=== PATIENT | male | born 1970 | race Caucasian/White ===

== ENCOUNTER 2024-10-13 23:51 | Emergency (ER) | payer SELFPAY ==
[~2024-10-13] VITALS: Ht 170.2 cm; Wt 62.9 kg
[2024-10-14 00:17] VITALS: O2SAT 98
[2024-10-14 00:38] VITALS: BP 145/79; PULSE 62; RESP 16; TEMP 36.9; O2SAT 100
[2024-10-14 04:14] LABS: BASOPHILS % 1.2 % (0.0-2.0); EOSINOPHILS % 1.5 % (0.0-5.0); HEMATOCRIT. 41.1 % (42.0-52.0); HEMOGLOBIN. 13.5 g/dL (14.0-18.0); LYMPHOCYTES % 35.9 % (20.0-50.0); MEAN CORPUSCULAR HEMOGLOBIN 28.6 pg (28.0-32.0); MEAN CORPUSCULAR HGB CONC 32.9 g/dL (31.0-37.0); MEAN PLATELET VOLUME 8.2 fl (7.4-10.4); MONOCYTES % 10.7 % (2.0-8.0); NEUTROPHILS % 50.7 % (40.0-76.0); PLATELET 171 x1000/uL (130-400); RED BLOOD CELL COUNT 4.73 mill/uL (4.7-6.1); WHITE BLOOD COUNT 5.9 x1000/uL (4.5-11.0)
[2024-10-14 04:20] LABS: CHLORIDE 99 mEq/L (98-107); SODIUM 129 mEq/L (136-145)
[2024-10-14 04:22] LABS: CALCIUM 9.2 mg/dL (8.7-10.4); CARBON DIOXIDE 27 mEq/L (21-32)
[2024-10-14 04:27] LABS: CREATININE 0.9 mg/dL (0.6-1.3); UREA NITROGEN BLOOD 14 mg/dL (9-23)
[2024-10-14 04:31] LABS: GLUCOSE 487 mg/dL (70-105)
[2024-10-14] MEDS ORDERED: METF-1149 MT (04:45)
== END 2024-10-14 05:47 | disposition home or self-care (01) ==
LOC: ER 23:51
DX: E11.65 Type 2 diabetes mellitus with hyperglycemia (principal); F32.A Depression, unspecified
CPT/HCPCS: 36415; 80048; 85025; 99283